=== PATIENT | female | born 1975 | race Caucasian/White ===

== ENCOUNTER 2017-03-06 22:34 | Emergency (ER) | payer BC ==
[2017-03-06 22:42] VITALS: BP 127/84; PULSE 61; TEMP 98; BMI 35.0
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
== END 2017-03-06 23:57 | disposition home or self-care (01) ==
LOC: JER 22:34
DX: Z77.9 Other contact with and (suspected) exposures hazardous to health (principal); X58.XXXA Exposure to other specified factors, initial encounter; Y93.89 Activity, other specified; Y92.511 Restaurant or cafe as the place of occurrence of the external cause; Y99.0 Civilian activity done for income or pay
CPT/HCPCS: 99281-25

== ENCOUNTER 2019-05-10 01:39 | Emergency (ER) | payer BC ==
[2019-05-10 02:00] VITALS: BP 119/73; PULSE 85; TEMP 98.9; BMI 27.4
--- NOTE | 2019-05-10 02:22 | PDOC ---
*Physical Exam - Vital Signs Last Vital Signs Temp Pulse Resp BP Pulse Ox 98.9 F 85 16 119/73 99 05/10/19 01:52 05/10/19 01:52 05/10/19 01:52 05/10/19 01:52 05/10/19 01:52 Medical Decision Making - Medical Decision Making 05/10/19 02:21 Patient seen by the advanced practice provider under my direct supervision. Ancillary testing reviewed as necessary. I agree with plan as outlined by the advanced practice provider. 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
[2019-05-10] MEDS ORDERED: IBUPROFEN 600 MG TABLET (FP) PO ONE ×2 (02:35→02:38)
[2019-05-10] MEDS ORDERED: DEXAMETHASONE SOD PHOSPHATE 10 MG/1 ML VIAL IM ONE (02:35)
--- NOTE | 2019-05-10 02:37 | PDOC ---
History of Present Illness - General Chief Complaint: Sore Throat Stated Complaint: SORE THROAT Time Seen by Provider: 05/10/19 02:20 History Source: Patient - History of Present Illness Initial Comments: 05/10/19 02:30 44 year old female c/o throat pain 3 days. subjective fever last night, vomited 1x, +cough. last advil yesterday morning. PMHX: none No daily meds Past History - Past Medical History Allergies/Adverse Reactions: Allergies Allergy/AdvReac Type Severity Reaction Status Date / Time No Known Allergies Allergy Verified 05/10/19 01:52 Home Medications: Ambulatory Orders NK [No Known Home Medication] 10/28/15 Anemia: No Asthma: No COPD: No Diabetes: No GI Disorders: No Disorders: No HTN: No Hypercholesterolemia: No - Surgical History Abdominal Surgery: Yes ( x2) - Reproductive History Tubal Ligation: Yes - Immunization History Immunization Up to Date: Yes - Psycho Social/Smoking Cessation Hx Smoking Status: No Smoking History: Never smoked Have you smoked in the past 12 months: No Number of Cigarettes Smoked Daily: 0 Hx Alcohol Use: No Drug/Substance Use Hx: No Substance Use Type: None Review of Systems - Review of Systems Able to Perform ROS?: Yes Is the patient limited Persian proficient: No Constitutional: Yes: Fever HEENTM: Yes: Throat Pain. No: Symptoms Reported, See HPI, Eye Pain, Blurred Vision, Tearing, Recent change in vision, Double Vision, Cataracts, Ear Pain, Ocular Prothesis, Ear Discharge, Nose Pain, Nose Congestion, Tinnitus, Nose Bleeding, Hearing Loss, Throat Swelling, Mouth Pain, Dental Problems, Difficulty Swallowing, Mouth Swelling, Other Respiratory: Yes: Cough. No: Symptoms reported, See HPI, Orthopnea, Shortness of Breath, SOB with Exertion, SOB at Rest, Stridor, Wheezing, Productive cough, Hemoptysis, Other Cardiac (ROS): No: Symptoms Reported, See HPI, Chest Pain, Edema, Irregular Heart Rate, Lightheadedness, Palpitations, Syncope, Chest Tightness, Other ABD/GI: Yes: Vomiting. No: Symptoms Reported, See HPI, Abdominal Distended, Abd. Pain w/ defecation, Blood Streaked Bowels, Constipated, Diarrhea, Difficulty Swallowing, Nausea, Poor Appetite, Poor Fluid Intake, Rectal Bleeding , Indigestion, Abdominal cramping, Tarry Stools, Other *Physical Exam - Vital Signs Last Vital Signs Temp Pulse Resp BP Pulse Ox 98.9 F 85 16 119/73 99 05/10/19 01:52 05/10/19 01:52 05/10/19 01:52 05/10/19 01:52 05/10/19 01:52 - Physical Exam General Appearance: Yes: Appropriately Dressed HEENT: positive: Other (hoarse voice, no drooliing, almost kissing tonsills, ) Respiratory/Chest: positive: Lungs Clear, Normal Breath Sounds Cardiovascular: positive: Regular Rhythm, Regular Rate Gastrointestinal/Abdominal: positive: Normal Bowel Sounds, Soft. negative: Tender Integumentary: positive: Normal Color, Dry, Warm Neurologic: positive: Fully Oriented, Alert Medical Decision Making - Medical Decision Making A: pharyngitis P: rapid strep :negative decadron strict return precautions reviewed with patient Discharge - Discharge Information Problems reviewed: Yes Clinical Impression/Diagnosis: Pharyngitis Qualifiers: Pharyngitis/tonsillitis etiology: unspecified etiology Qualified Code(s): J02.9 - Acute pharyngitis, unspecified Disposition: HOME - Follow up/Referral - Patient Discharge Instructions Patient Printed Discharge Instructions: Sore Throat Additional Instructions: Drink plenty of fluids Gargle with warm salty water Drink warm liquids Take ibuprofen every 6 hours as needed for pain or fever 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
[2019-05-10] MEDS ORDERED: DEXAMETHASONE SOD PHOSPHATE 10 MG/1 ML VIAL ONE (02:38)
== END 2019-05-10 03:33 | disposition home or self-care (01) ==
LOC: JER 01:39
PROC: 3E023GC Introduction of Other Therapeutic Substance into Muscle, Percutaneous Approach (ICD-10-PCS; principal; 2019-05-10)
DX: J02.9 Acute pharyngitis, unspecified (principal)
CPT/HCPCS: 87070; 87880; 99281-25; J1100

== ENCOUNTER 2020-05-04 14:56 | Emergency (ER) | payer BC ==
[2020-05-04 15:08] VITALS: BP 131/83; PULSE 75; TEMP 97.1; BMI 34.3
[2020-05-04] MEDS ORDERED: SODIUM CHLORIDE 1,000 ML IV ONE (16:35)
[2020-05-04] MEDS ORDERED: MECLIZINE HCL 25 MG TABLET (FP) PO ONE (16:38)
[2020-05-04] MEDS ORDERED: MECLIZINE HCL 25 MG TABLET (FP) ONE (17:10)
[2020-05-04 17:30] LABS: BASO % 0.6 % (0-2.0); EOS % 2.2 % (0-4.5); HEMOGLOBIN 12.1 GM/dL (10.7-15.3); LYMPH % 29.3 % (8-40); MCH 27.3 pg (25.7-33.7); MCHC 33.6 g/dl (32.0-36.0); MEAN CELL VOLUME 81.3 fl (80-96); MEAN PLT VOLUME 8.2 fl (7.5-11.1); MONO % 5.9 % (3.8-10.2); PLATELET COUNT 275 K/MM3 (134-434); RBC 4.43 M/mm3 (3.60-5.2); RDW 13.2 % (11.6-15.6); WHITE BLOOD COUNT 8.5 K/mm3 (4.0-10.0)
[2020-05-04 17:50] LABS: CHLORIDE 107 mmol/L (98-107); SODIUM 141 mmol/L (136-145)
[2020-05-04 17:52] LABS: ALBUMIN 4.1 g/dl (3.4-5.0); ANION GAP 8 MMOL/L (8-16); BLOOD UREA NITROGEN 18.7 mg/dL (7-18); CALCIUM 8.9 mg/dL (8.5-10.1); CO2 27 mmol/L (21-32); GLUCOSE,RANDOM 97 mg/dL (74-106)
[2020-05-04 17:53] LABS: INR 0.99 (0.83-1.09); PROTHROMBIN TIME (PATIENT) 12.2 SEC (9.7-13.0)
[2020-05-04 17:55] LABS: SGPT/ALT 19 U/L (13-61)
[2020-05-04 17:56] LABS: ACTIVATED PTT 28.3 SECONDS (25.2-36.5); SGOT/AST 16 U/L (15-37)
[2020-05-04 17:57] LABS: BILIRUBIN,TOTAL 0.2 mg/dL (0.2-1); TOT PROT 7.5 g/dl (6.4-8.2)
[2020-05-04 17:58] LABS: ALK PHOS 79 U/L (45-117)
[2020-05-04 17:59] LABS: CREATININE 0.7 mg/dL (0.55-1.3)
[2020-05-04 20:20] LABS: EPI CELLS >36 /uL (0-25.1); HCG,QUALITATIVE URINE Negative; HYALINE CASTS 3 /uL (0-3.1); PH,URINE 7.5 (5.0-8.0); URINE APPEARANCE TURBID; URINE BACTERIA 1871 /uL (0-1359); URINE BILIRUBIN NEGATIVE (NEGATIVE); URINE COLOR YELLOW; URINE GLUCOSE (UA) NEGATIVE (NEGATIVE); URINE KETONE NEGATIVE (NEGATIVE); URINE LEUK ESTERASE TRACE (NEGATIVE); URINE NITRITE NEGATIVE (NEGATIVE); URINE PROTEIN NEGATIVE (NEGATIVE); URINE UROBILINOGEN 0.2 mg/dL (0.2-1.0); URINE WBC 44 /uL (0-25.8)
== END 2020-05-04 19:45 | disposition home or self-care (01) ==
LOC: JER 14:56
DX: H81.13 Benign paroxysmal vertigo, bilateral (principal)
CPT/HCPCS: 36415; 80053; 81003; 82550; 84484; 84703; 85025; 85610; 85730; 87086; 93005; 93010; 99284-25

== ENCOUNTER 2020-11-12 17:51 | Emergency (ER) | payer BC ==
[2020-11-12 17:58] VITALS: TEMP 98.3; BMI 26.6
[2020-11-12] MEDS ORDERED: SODIUM CHLORIDE 1,000 ML IV STA (18:56)
[2020-11-12] MEDS ORDERED: FAMOTIDINE 20 MG TABLET PO ONE (18:57)
[2020-11-12] MEDS ORDERED: MAG HYDROX/AL HYDROX/SIMETH 30 ML UNIT-DOSE CUP PO ONE (18:57)
[2020-11-12] MEDS ORDERED: FAMOTIDINE 20 MG/50 ML IVPB 20 MG/50 ML MG IVPB ONE (19:09)
[2020-11-12] MEDS ORDERED: MAG HYDROX/AL HYDROX/SIMETH 30 ML UNIT-DOSE CUP ONE (19:09)
[2020-11-12 19:43] LABS: BASO % 0.5 % (0-2.0); EOS % 1.9 % (0-4.5); HEMATOCRIT 34.1 % (32.4-45.2); HEMOGLOBIN 11.3 GM/dL (10.7-15.3); LYMPH % 30.2 % (8-40); MCH 25.8 pg (25.7-33.7); MEAN CELL VOLUME 78.3 fl (80-96); MEAN PLT VOLUME 7.5 fl (7.5-11.1); MONO % 5.6 % (3.8-10.2); NEUT % 61.8 % (42.8-82.8); PLATELET COUNT 276 10^3/uL (134-434); RBC 4.36 M/mm3 (3.60-5.2); RDW 13.9 % (11.6-15.6); WHITE BLOOD COUNT 7.2 K/mm3 (4.0-10.0)
[2020-11-12 20:00] LABS: CHLORIDE 107 mmol/L (98-107); SODIUM 139 mmol/L (136-145)
[2020-11-12 20:06] LABS: CALCIUM 8.9 mg/dL (8.5-10.1)
[2020-11-12 20:07] LABS: ANION GAP 7 MMOL/L (8-16); BLOOD UREA NITROGEN 15.2 mg/dL (7-18); CO2 25 mmol/L (21-32); GLUCOSE,RANDOM 103 mg/dL (74-106)
[2020-11-12 20:08] LABS: LIPASE 178 U/L (73-393)
[2020-11-12 20:10] LABS: CREATININE 0.7 mg/dL (0.55-1.3); SGOT/AST 13 U/L (15-37); SGPT/ALT 17 U/L (13-61)
[2020-11-12 20:11] LABS: BILIRUBIN,TOTAL 0.6 mg/dL (0.2-1); TOT PROT 7.4 g/dl (6.4-8.2)
[2020-11-12 20:13] LABS: ALK PHOS 80 U/L (45-117)
[2020-11-12 20:32] LABS: HCG,QUALITATIVE URINE Negative
[2020-11-12 20:34] LABS: EPI CELLS >36 /uL (0-25.1); HYALINE CASTS 0 /uL (0-3.1); PH,URINE 6.5 (5.0-8.0); URINE APPEARANCE CLOUDY; URINE BACTERIA 1268 /uL (0-1359); URINE BILIRUBIN NEGATIVE (NEGATIVE); URINE COLOR YELLOW; URINE GLUCOSE (UA) NEGATIVE (NEGATIVE); URINE KETONE NEGATIVE (NEGATIVE); URINE LEUK ESTERASE TRACE (NEGATIVE); URINE NITRITE NEGATIVE (NEGATIVE); URINE PROTEIN NEGATIVE (NEGATIVE); URINE RBC 117 /uL (0-23.9); URINE UROBILINOGEN 0.2 mg/dL (0.2-1.0); URINE WBC 45 /uL (0-25.8)
[2020-11-12 22:54] VITALS: BP 127/78; PULSE 62
== END 2020-11-12 22:54 | disposition home or self-care (01) ==
LOC: JER 17:51
PROC: 3E0337Z Introduction of Electrolytic and Water Balance Substance into Peripheral Vein, Percutaneous Approach (ICD-10-PCS; principal; 2020-11-12)
DX: N30.90 Cystitis, unspecified without hematuria (principal)
CPT/HCPCS: 36415; 71046-TC-FY; 74176-TC; 80053; 81003; 82550; 83690; 84484; 84703; 85025; 87077; 87086; 93005; 93010; 99285-25

== ENCOUNTER 2021-05-03 14:45 | Emergency (ER) | payer BC ==
[2021-05-03 15:03] VITALS: BMI 29.2
[2021-05-03 17:48] VITALS: BP 128/84; PULSE 82; TEMP 98.8
== END 2021-05-03 17:20 | disposition home or self-care (01) ==
LOC: JER 14:45
DX: R51.9 Headache, unspecified (principal); M79.10 Myalgia, unspecified site; Z11.52 Encounter for screening for COVID-19
CPT/HCPCS: 87651; 87804; 87807; 99283-25; C9803; U0003; U0005

== ENCOUNTER 2022-07-17 14:57 | Emergency (ER) | payer BC ==
[2022-07-17 15:15] VITALS: BP 141/83; PULSE 88; RESP 18; TEMP 98.8; BMI 27.4
[2022-07-17] MEDS ORDERED: ACETAMINOPHEN 325 MG TABLET (FP) PO ONE (17:10)
[2022-07-17] MEDS ORDERED: ACETAMINOPHEN 325 MG TABLET (FP) ONE (17:20)
== END 2022-07-17 18:52 | disposition home or self-care (01) ==
LOC: JERFT 14:57
DX: R05.1 Acute cough (principal); R09.81 Nasal congestion; R51.9 Headache, unspecified
CPT/HCPCS: 0241U-QW; 99283-25

== ENCOUNTER 2022-10-30 14:51 | Emergency (ER) | payer BC ==
[2022-10-30 14:59] VITALS: BP 116/72; PULSE 86; RESP 18; TEMP 98.4; BMI 28.3
[2022-10-30] MEDS ORDERED: predniSONE 20 MG TABLET (UD) PO ONE (15:33)
[2022-10-30] MEDS ORDERED: predniSONE 20 MG TABLET (UD) ONE (15:40)
== END 2022-10-30 16:25 | disposition home or self-care (01) ==
LOC: JERFT 14:51
DX: R07.0 Pain in throat (principal); R05.9 Cough, unspecified; J02.9 Acute pharyngitis, unspecified
CPT/HCPCS: 99283-25